=== PATIENT | female | born 1955 | race Caucasian/White ===

== ENCOUNTER → 2019-04-15 | Outpatient (CLI) | payer OTHER ==
[2015-02-20 13:30] VITALS: BP 122/56
[~2019-04-15] MED LIST: ALPR0.25 PO; BUSP15TA PO; FLUO10CA13 PO; OMEP40CA45 PO; SIMV40TA18 PO
--- NOTE | 2019-04-15 17:16 | KCIC ---
Bilateral digital screening mammograms: Reason for examination: Routine screening. New baseline. Interpretation was made with the benefit of CAD. The skin and nipples show no abnormalities. No abnormal axillary lymph nodes are seen. The breast parenchyma shows scattered fibroglandular density. (Breast density: Category B.) There appears to be a small nodular parenchymal density posterior laterally at the 2:00 B position of the left breast approximately 5 cm from the nipple. Recommend further evaluation with ultrasound. There are no other dominant masses, suspicious calcifications or architectural distortions. Some benign calcifications are present. Impression: Small 8 mm nodular density at approximately the 2:00 B position of the left breast 5 cm posterior to the nipple. Recommend further evaluation with ultrasound. BI-RADS Category 0: Incomplete. Needs additional imaging evaluation. "Our facility is accredited by the [employer] Mammography [employer]." This patient's information has been entered into a reminder system for the patient to be notified with the results of her examination and a target date for the next mammogram. Electronically signed by: Temi Solis MD (04/15/2019 5:13 PM) [id number]
== END | disposition home or self-care (01) ==
LOC: KCIC MAMMO 15:42
PROVIDERS: ATTEND Family Medicine
DX: Z12.31 Encounter for screening mammogram for malignant neoplasm of breast (principal); N64.89 Other specified disorders of breast
CPT/HCPCS: 77067

== ENCOUNTER → 2019-04-22 | Outpatient (CLI) | payer OTHER ==
[2015-02-20 13:30] VITALS: BP 122/56
[~2019-04-22] MED LIST changes: -SIMV40TA18 PO; +SIMV40TA3 PO
--- NOTE | 2019-04-23 16:33 | RAD ---
Examination: BREAST LEFT History: Abnormal mammogram Comparison/Correlation: 04/15/2019 screening mammographic exam Findings: Limited left breast ultrasound exam was performed. At the 3:00 region 4 cm from the nipple, there is a 0.6 cm x 0.4 cm x 0.2 cm tall cystic or possibly hypoechoic structure. This finding is homogeneous and well-circumscribed. No flow evident on color Doppler imaging. Impression: BI-RADS Category 3-probably benign. Six-month follow-up left unilateral diagnostic mammogram is recommended to assess stability. Ultrasound may be needed at that time. Electronically signed by: Chandra Bradshaw MD (04/23/2019 4:30 PM) [facility]
== END | disposition home or self-care (01) ==
LOC: US 15:52
PROVIDERS: ATTEND Family Medicine
DX: R92.8 Other abnormal and inconclusive findings on diagnostic imaging of breast (principal)
CPT/HCPCS: 76641

== ENCOUNTER → 2020-01-26 | Outpatient (CLI) | payer OTHER ==
[2015-02-20 13:30] VITALS: BP 122/56
[~2020-01-26] MED LIST changes: +SIMV40TA18 PO; -SIMV40TA3 PO
--- NOTE | 2020-01-26 12:50 | KCIC ---
Left breast diagnostic digital mammograms with 3-D tomosynthesis: Reason for examination: Follow-up nodule. Comparison is made to previous study dated 04/15/2019. Left breast mammograms in CC and oblique projections were obtained with 2-D imaging and 3-D tomosynthesis imaging on a Siemens Inspiration unit and reviewed on the workstation. Interpretation was made with the benefit of CAD. The skin and nipple show no abnormalities. No abnormal axillary lymph nodes are seen. The breast parenchyma is heterogeneously dense. (Breast density: Category C.) There appears to be improvement in the nodularity seen in the upper-outer quadrant of the left breast. No new dominant masses, suspicious calcifications or architectural distortion. Benign calcifications are present. Impression: Improvement in the nodularity seen in the upper outer quadrant. Ultrasound to follow. BI-RADS Category 0: Incomplete. Needs additional imaging evaluation. Left breast ultrasound: Ultrasound examination was performed in the area of mammographic concern and at the axilla. At the 3:00 position 4 cm from the nipple, there is a 6 mm hypoechoic fibrocystic lesion which has remained relatively stable. There are no new cystic or solid lesions seen. No abnormal appearing lymph nodes are seen in the axilla. IMPRESSION: Continued presence of a benign fibrocystic type lesion at the 3:00 position measuring 6 mm in size. This is stable. No other focal abnormality seen. Recommend routine mammographic follow-up. Your patient's mammogram demonstrates that she has dense breast tissue (breast density category C or D), which could hide abnormalities, and if she has other risk factors for breast cancer that have been identified, she might benefit from supplemental screening tests that may be suggested by you as her ordering physician. Dense breast tissue, in and of itself, is a relatively common condition. Therefore, this information is not provided to cause undue concern, but rather to raise your awareness and to promote discussion with your patient regarding the presence of other risk factors, in addition to dense breast tissue. Your patient's mammography results will be sent to her. BI-RAD Category 2: Benign. "Our facility is accredited by the [employer] Mammography [employer]." This patient's information has been entered into a reminder system for the patient to be notified with the results of her examination and a target date for the next mammogram. Electronically signed by: Temi Solis MD (01/26/2020 12:47 PM) [email or web address]
== END | disposition home or self-care (01) ==
LOC: KCIC MAMMO 08:45
PROVIDERS: ATTEND Family Medicine
DX: R92.2 Inconclusive mammogram (principal); R92.1 Mammographic calcification found on diagnostic imaging of breast; N63.21 Unspecified lump in the left breast, upper outer quadrant
CPT/HCPCS: 76641; 77065; G0279; 77061

== ENCOUNTER → 2021-10-02 | Outpatient (CLI) | payer BC, OTHER ==
[2015-02-20 13:30] VITALS: BP 122/56
[~2021-10-02] MED LIST changes: -OMEP40CA45 PO; +OMEP40CA7 PO
--- NOTE | 2021-10-02 10:42 | KCIC ---
Bilateral digital screening mammograms with 3-D tomosynthesis: Reason for examination: Routine screening. Comparison is made to previous studies dated 01/26/2020 and 04/15/2019. Bilateral mammograms in CC and oblique projections were obtained with 2-D imaging and 3-D tomosynthes is imaging on a Siemens Inspiration unit and reviewed on the workstation. Interpretation was made wit h the benefit of CAD. The skin and nipples show no abnormalities. No abnormal axillary lymph nodes are seen. The breast par enchyma is heterogeneously dense. (Breast density: Category C.) There are no new dominant masses, kyle picious calcifications or architectural distortion. Benign calcifications are present. Impression: No evidence of malignancy. Recommend routine screening. Your patient's mammogram demonstrates that she has dense breast tissue (breast density category C or D), which could hide abnormalities, and if she has other risk factors for breast cancer that have bee n identified, she might benefit from supplemental screening tests that may be suggested by you as her ordering physician. Dense breast tissue, in and of itself, is a relatively common condition. Therefo re, this information is not provided to cause undue concern, but rather to raise your awareness and t o promote discussion with your patient regarding the presence of other risk factors, in addition to d ense breast tissue. Your patient's mammography results will be sent to her. BI-RAD Category 2: Benign. "Our facility is accredited by the [employer] Mammography [employer]." This patient's information has been entered into a reminder system for the patient to be notified wit h the results of her examination and a target date for the next mammogram. Electronically signed by: Temi Solis MD (10/02/2021 10:40 AM) [email or web address]
== END ==
LOC: KCIC MAMMO 08:47
PROVIDERS: ATTEND Registered Nurse
DX: Z12.31 Encounter for screening mammogram for malignant neoplasm of breast (principal)
CPT/HCPCS: 77063; 77067